=== PATIENT | male | born 1980 ===

== ENCOUNTER 2017-08-13 10:03 | Day surgery (SDC) | payer OTHER ==
[2017-08-13] MEDS ORDERED: Ciprofloxacin 400mg/200ml D5W 400 MG/200 ML BAG IVPB ONE (11:34)
[2017-08-13] MEDS ORDERED: Lidocaine Hydrochloride 10 ML INJ ONE (11:34)
[2017-08-13] MEDS ORDERED: Midazolam 2 MG/2 ML VIAL ONE ×2 (11:38→11:49)
[2017-08-13] MEDS ORDERED: Propofol 10 mg/ml Inj (20 ML) ONE ×4 (11:39→12:11)
[2017-08-13] MEDS: Bupivacaine HCl 0.5% PF (10 ml) Inj ONE ×2 (11:50→12:02)
[2017-08-13] MEDS ORDERED: Bacitracin Ointment 30 GM TUBE ONE (11:59)
[2017-08-13] MEDS ORDERED: HYDROmorphone 0.5 mg/0.5 ml ISec IVP PRN (12:36)
--- NOTE | 2017-08-13 12:37 | PCM.SURG1 ---
Surgeon's Initial Post Op Note - Surgeon's Notes Surgeon: dmitriy Labor Delivery Rn: none Type of Anesthesia: General Endo, General IV, Local Anesthesia Administered By: Saba Pre-Operative Diagnosis: sterility Operative Findings: vas 2 present. Post-Operative Diagnosis: sterility Operation Performed: bilateral vasectomy Specimen/Specimens Removed: segment right and left vas. Estimated Blood Loss: EBL {In ML}: 0 Blood Products Given: N/A Drains Used: No Drains Post-Op Condition: Good Date of Surgery/Procedure: 08/13/17 Time of Surgery/Procedure: 12:39
[2017-08-13 13:29] VITALS: RESP 16; TEMP 97.4
[2017-08-13 14:28] VITALS: BP 102/60; PULSE 73; O2SAT 100
--- NOTE | 2017-08-15 01:56 | OP ---
PROCEDURE DATE: 08/13/2017 PREOPERATIVE DIAGNOSIS: Sterility. POSTOPERATIVE DIAGNOSIS: Sterility. OPERATION: Bilateral vasectomy. SURGEON: Damion Hall MD FINDINGS: Normal scrotum with right and left vas deferens present. TECHNIQUE: This patient was placed in supine position. The external genitalia was prepped and draped in the usual sterile fashion. Under sedation on local anesthesia, 1% Xylocaine, 0.5 Marcaine was infiltrated around the left vas. The skin had 1 cm incision that was performed. The left vas was exposed and isolated from the surrounding tissue. A segment atleast 1 cm from the left vas was removed, and the distal end and proximal end was thoroughly fulgurated. The bleeding was controlled by fulguration and 3-0 chromic tie. The skin was closed with 2 stitches of 3-0 Chromic. In the same manner, the right vas deferens was exposed and 1 cm segment of the right vas was removed. Again both ends of the vas were thoroughly fulgurated. No bleeding was present at the end of the procedure. The skin on the right hemiscrotum was closed with one stitch of 3-0 Chromic. Dressing was applied. The patient withstood the procedure well and returned to recovery room in satisfactory condition. Damion Hall MD
== END 2017-08-13 14:04 | disposition home or self-care (01) ==
LOC: C.SDS 10:03
PROVIDERS: ATTEND Urology
DX: Z30.2 Encounter for sterilization (principal)
CPT/HCPCS: 55250; 88302; J0744; J2001; J2250; J2704; J3010